=== PATIENT | female | born 1955 | race Caucasian/White ===

== ENCOUNTER → 2021-08-08 | Day surgery (SDC) | payer MEDICARE, OTHER ==
[~2021-08-08] MED LIST: ASPIRIN81 MG PO; DILTIAZEM 24HR180 M1 PO; FENTANYL CITRATE/PF 100MCG/2 ML INJ ONE; MIDAZOLAM HCL 2 MG/2 ML VIAL ONE; OR PHACO EYE KIT ONE; PANTOPRAZOLE SO20 MG PO; PREOP PHACO EYE KIT ONE; PROPAFENONE HC325 MG PO; XANAX1 MG PO
[2021-08-08 13:00] VITALS: BP 137/80
== END | disposition home or self-care (01) ==
LOC: OR 10:38
PROVIDERS: ATTEND Ophthalmology
DX: H25.11 Age-related nuclear cataract, right eye (principal); I10 Essential (primary) hypertension; I48.91 Unspecified atrial fibrillation; J45.909 Unspecified asthma, uncomplicated; K21.9 Gastro-esophageal reflux disease without esophagitis; Z88.0 Allergy status to penicillin; Z88.7 Allergy status to serum and vaccine; Z79.82 Long term (current) use of aspirin; Z79.899 Other long term (current) drug therapy
CPT/HCPCS: 0223U; 36415; 66984; J2250; J3010; V2788